=== PATIENT | male | born 1945 | race Caucasian/White ===

== ENCOUNTER 2017-02-16 15:00 | Observation (INO) | payer MEDICARE, OTHER ==
--- NOTE | ~2017-02-16 | HP ---
History And Physical [id number] [place]. [address] NAME: KRISH COMER : 45 STATUS : ADM Lolita PAT#: [id number] AGE: 71 ADM/REG DATE : 02/16/17 MR#: [id number] REPORT SERV DATE: 02/17/17 DICTATED BY: GLORIA LARA DATE: 02/17/17 REPORT STATUS : Draft TRANSCRIBED BY: MODMavis DATE: 02/17/17 DATE OF ADMISSION: 02/16/2017 PRIMARY UX DESIGN LEAD: Celsa Gutiérrez MD. CHIEF COMPLAINT: Chest pain. HISTORY OF PRESENT ILLNESS: This is a very pleasant, 71-year-old male, with no prior coronary artery disease, who states a three-day history of nonexertional chest pain. He states that sometimes it seems worse with a deep breath and is typically right-sided, lasting "a little while" and seemingly better with Tylenol. Yesterday, the pain reoccurred, described as "pressure," right side of his chest, 5/10 in severity, and lasting several seconds, but he noticed more tightness with his breathing. He was given nitroglycerin and aspirin in the emergency department and admitted to our Chest Pain Observation Unit. He has had no further chest pains since yesterday. The patient is active with yard work and such, but no regular exercise routine. Denies any exertional chest pains recently. Denies personal history for DE, CVA, DVT, or PE. Denies any recent fever, cough, or chills. Denies any significant shortness of breath. MEDICAL HISTORY: 1. Anxiety and depression. 2. GERD. 3. Hypothyroidism. 4. Irritable bowel syndrome/diarrhea. 5. Renal carcinoid tumor, status post right nephrectomy in 2004. OTHER SURGICAL HISTORY: Pituitary tumor removed. HOME MEDICATIONS: Tylenol 500 q.6 h. p.r.n. pain, Librax two capsules daily, vitamin D3 at 2000 units daily, Prozac 20 daily, levothyroxine 100 mcg daily, ranitidine 150 mg daily, vitamin E 800 units daily, testosterone injection every 21 days, fish oil [id number] one capsule daily. ALLERGIES: MORPHINE, CAUSES NAUSEA, VOMITING, AND GI UPSET. DEMEROL CAUSES NAUSEA, VOMITING, AND GI UPSET. SOCIAL HISTORY: The patient is . He is retired after working long time for [employer]. Quit smoking at age 33. Denies alcohol or illicit drug use. FAMILY HISTORY: Mother had diabetes and CHF and at age 74. Father at age 51 of cerebral hemorrhage, but he was a boxer. REVIEW OF SYSTEMS: Negative except as indicated above. History And Physical [address] [address] NAME: KRISH COMER : 45 STATUS : ADM Lolita PAT#: [id number] AGE: 71 ADM/REG DATE : 02/16/17 MR#: [id number] REPORT SERV DATE: 02/17/17 DICTATED BY: GLORIA LARA DATE: 02/17/17 REPORT STATUS : Draft TRANSCRIBED BY: ALEXIS DATE: 02/17/17 LABORATORY DATA: White blood count 5.9, hemoglobin 12.9, hematocrit 40.3. PT/INR 15.1/1.2. D-dimer less than 0.27. Sodium 137, potassium 4.5, BUN 21, creatinine 1.4. Troponin less than 0.02 x2. Chest x-ray shows no acute cardiopulmonary processes. EKG interpreted by myself indicates normal sinus rhythm and sinus bradycardia with a transient first-degree AV block when looking up four EKGs that have been obtained since admission. PHYSICAL EXAMINATION: VITAL SIGNS: Blood pressure 129/75, heart rate 77, temperature 97.6, pulse oximetry 95% on room air. BMI 30.1. GENERAL: Well developed, well nourished, in no acute distress. HEENT: Anicteric. Normal EOM. Head normocephalic. PERRLA, no xanthelasma. NECK: Supple. No JVD. Carotids normal without bruits. LUNGS: Clear to auscultation bilaterally anterior and posterior. Respirations even and unlabored. CARDIAC: S1, S2 regular rate and rhythm. No murmurs, rubs, or gallops. No chest wall tenderness. ABDOMEN: Normal bowel sounds. Soft and nontender to palpation. No masses or organomegaly. EXTREMITIES: No peripheral edema. DP/PT and radial pulses palpable bilaterally. No clubbing or cyanosis. SKIN: Warm and dry. Normal turgor. No pallor or cyanosis. MUSCULOSKELETAL: Moving all extremities x4. Normal muscle strength. NEURO/PSYCH: Alert and oriented with appropriate affect. ASSESSMENT AND PLAN: 1. Atypical chest pain in this 71-year-old male with no significant cardiovascular risk factors. He has been observed overnight in the Chest Pain Observation Unit and is negative for acute coronary syndrome. Recommend proceeding with a nuclear stress test today to differentiate any ischemic etiology to his chest pain. If this is low risk, we will plan to discharge him home today to follow up with his primary care physician. Consider possible GI-related cause. 2. Gastroesophageal reflux disease and history of irritable bowel syndrome. The patient is currently on H2 antagonist. Consider adding a PPI on discharge. 3. History of right nephrectomy. Creatinine appears stable with baseline, although elevated at 1.4. DBT/ALEXIS Gloria Lara NP / [id number] CC: Deena Samano, MSN, DENTAL SPECIALIST-BC Alex Pacheco M.D. History And Physical [address] [address] NAME: KRISH COMER : 45 STATUS : ADM Lolita PAT#: [id number] AGE: 71 ADM/REG DATE : 02/16/17 MR#: [id number] REPORT SERV DATE: 02/17/17 DICTATED BY: GLORIA LARA DATE: 02/17/17 REPORT STATUS : Draft TRANSCRIBED BY: MODL DATE: 02/17/17 Celsa Gutiérrez M.D.
[2017-02-16 14:00] LABS: BUN (BLOOD UREA NITROGEN) 21 MG/DL (6-23); CALCIUM, SERUM 8.9 MG/DL (8.5-10.4); CHEST PAIN PROFILE TAT 0 Hrs 20 Mins; CHLORIDE, SERUM 107 MMOL/L (96-112); CO2 (CARBON DIOXIDE) 24 MMOL/L (24-34); CREATININE 1.41 MG/DL (0.70-1.30); GFR AFRICAN AMERICAN 58 ML/MIN (>=60); GFR NON AFRICAN AMERICAN 50 ML/MIN (>=60); GLUCOSE, SERUM 83 MG/DL (60-99); POTASSIUM, SERUM 4.5 MMOL/L (3.5-5.3); SODIUM, SERUM 137 MMOL/L (135-148); TROPONIN I <0.02 NG/ML (<0.05)
[2017-02-16 14:07] LABS: BASOPHILS 0.7 %; BASOPHILS ABSOLUTE 0.04 10/3/uL (0.0-0.16); EOSINOPHILS 3.1 %; EOSINOPHILS ABSOLUTE 0.18 10/3/uL (0.0-0.53); HEMATOCRIT 40.3 % (40.0-51.0); HEMOGLOBIN 12.9 g/dL (13.6-17.8); IMMATURE GRANULOCYTES 0.3 %; IMMATURE GRANULOCYTES ABSOLUTE 0.02 10/3/uL (0.0-0.11); LYMPHOCYTES ABSOLUTE 1.58 10/3/uL (0.67-4.30); MEAN CORPUSCULAR VOLUME 76.3 fL (80-100); MEAN PLATELET VOLUME 11.1 fL (9.2-13.0); MONOCYTES 8.2 %; MONOCYTES ABSOLUTE 0.48 10/3/uL (0.21-1.20); NEUTROPHILS 60.7 %; NEUTROPHILS ABSOLUTE 3.56 10/3/uL (2.02-8.40); PLATELET COUNT 168 10/3/uL (150-400); RBC DISTRIBUTION WIDTH 15.7 % (12.0-16.0); RED CELL COUNT 5.28 10/6/uL (4.7-6.1); WHITE BLOOD CELLS 5.9 10/3/uL (4.5-10.5)
[2017-02-16 14:08] LABS: MANUAL DIFF NO %; MEAN CORPUSCULAR HEMOGLOB 24.4 pg (26.0-34.0)
[2017-02-16 14:15] LABS: INTERNATIONAL NORMAL RATI 1.2 UNITS (-); PARTIAL THROMBO TIME 28.6 SEC (22.5-37.2); PROTIME (NOT ORD) 15.1 SEC (12.0-14.5)
[2017-02-16 14:18] LABS: D-DIMER QUANTITATIVE < 0.27 ug/mLFEU (< 0.50)
[~2017-02-16 15:00] MED LIST: ACET500CAP PO; FISH OIL OTC PO; LEVOTHYROXIN100 MCG PO; LIBRAX PO; PROZAC PO; TESTOST CYP100 MG/ML IM; VITAMIN D31000 UNIT PO; VITE PO; ZANTAC 150 PO
== END 2017-02-17 14:56 | disposition home or self-care (01) ==
LOC: ER 15:00 → CDU1 15:19
PROVIDERS: Nurse Practitioner Family
DX: R07.89 Other chest pain (principal); F41.9 Anxiety disorder, unspecified; F32.9 Major depressive disorder, single episode, unspecified; K21.9 Gastro-esophageal reflux disease without esophagitis; E03.9 Hypothyroidism, unspecified; M19.90 Unspecified osteoarthritis, unspecified site; Z98.890 Other specified postprocedural states; Z79.899 Other long term (current) drug therapy; Z87.19 Personal history of other diseases of the digestive system; Z88.5 Allergy status to narcotic agent; Z88.8 Allergy status to other drugs, medicaments and biological substances; Z87.891 Personal history of nicotine dependence
CPT/HCPCS: 71010; 78452; 80048; 83735; 83880; 84484; 85025; 85379; 85610; 85730; 93005; 93017; 99285; A9270-GY; A9502; G0378